=== PATIENT | male | born 1975 | race Two or more races ===

== ENCOUNTER 2025-02-03 18:30 | Emergency (ER) | payer OTHER ==
[~2025-02-03] VITALS: Ht 167.6 cm; Wt 81.6 kg
[2025-02-03 21:31] LABS: BASO % 0.6 % (0.1-1.2); EOS # 0.24 (0.04-0.54); EOS % 3.3 % (0.7-7.0); HEMATOCRIT 40.1 % (40.1-51.0); HEMOGLOBIN 13.1 g/dL (13.7-17.5); LYMPH # 2.74 (1.18-3.74); LYMPH % 37.8 % (19.3-53.1); MEAN CORPUSCULAR HEMOGLOBIN 27.6 pg (25.6-32.2); MONO # 0.45 (0.24-0.82); MONO % 6.2 % (4.7-12.5); NEUT # 3.77 (1.56-6.13); PLATELET COUNT 235 K/uL (163-369); RED BLOOD COUNT 4.75 M/uL (4.63-6.08); RED CELL DISTRIBUTION WIDTH 13.8 % (11.6-14.4)
[2025-02-03 22:00] LABS: PH,URINE 5.5 (5.0-8.0); URINE APPEARANCE Clear; URINE BILIRRUBIN Negative (NEGATIVE); URINE BLOOD Negative; URINE COLOR Yellow; URINE GLUCOSE Negative (NEGATIVE); URINE KETONE Negative (NEGATIVE); URINE LEUKOCYTE Negative; URINE NITRATE Negative; URINE PROTEIN Trace (NEGATIVE)
[2025-02-03 22:03] LABS: URINE BACTERIA 67.3 uL (0.0-1933); URINE EPITHELIAL CELLS 3.4 uL (0.0-38.8); URINE RBC 27.9 uL (0.0-20.8); URINE WBC 7.2 uL (0.0-23.2)
[2025-02-03 22:06] LABS: ALBUMIN 3.8 gm/dL (3.4-5.0); BILIRUBIN TOTAL 0.38 mg/dL (0.3-1.2); CALCIUM 9.1 mg/dL (8.5-10.1); CREATININE SERUM 1.07 mg/dL (0.70-1.30); GFR 72.86; GLOBULINA 3.1 G/DL (2.4-3.5); POTASSIUM 4.56 mEq/L (3.5-5.1); TOTAL PROTEIN 6.9 gm/dL (6.4-8.2)
[2025-02-03 22:13] LABS: URINE CAST 0.58 uL (0.0-1.40)
== END 2025-02-04 00:14 | disposition home or self-care (01) ==
LOC: ER 18:30
PROVIDERS: Preventive Medicine Public Health & General Preventive Medicine
DX: R07.89 Other chest pain (principal)